=== PATIENT | male | born 1995 | race Caucasian/White ===

== ENCOUNTER → 2021-05-21 | Outpatient (CLI) | payer BC ==
--- NOTE | 2021-05-21 11:31 | USB ---
Reason for exam: clinical finding. Physical Findings: Nurse did not find any significant physical abnormalities on exam. US Breast LT Left limited breast ultrasound including focal area of concern, retroareolar and axilla demonstrates a 2.3 x 1.7 x 1.1cm gynecomastia appearance, flame shaped subareolar irregular area at the nipple. Right limited breast ultrasound including focal area of concern, retroareolar and axilla demonstrates gynecomastia trace at the nipple. Bilateral nipples and axilla scanned. These results were verbally communicated with the patient and result sheet given to the patient on 05/21/21. ASSESSMENT: Benign, BI-RAD 2 RECOMMENDATION: Clinical management of both breasts. Manage on a clinical basis with regard to gynecomastia greater in the left breast, correlate for potential causes.
== END | disposition home or self-care (01) ==
LOC: RADMAMWWP 10:00
PROVIDERS: ATTEND Family Medicine
DX: N62 Hypertrophy of breast (principal)